=== PATIENT | female | born 1970 | race Caucasian/White ===

== ENCOUNTER 2016-10-05 08:38 | Observation (INO) | payer OTHER ==
[2016-09-25 11:10] VITALS: BMI 22.0
[2016-10-05] VITALS (13 sets, daily range): BP systolic 109–139; BP diastolic 73–89; PULSE 73–112; TEMP 36.5–36.8; O2SAT 96–100; Ht 160 cm; Wt 58.6 kg
[~2016-10-05] VITALS: Ht 160 cm; Wt 58.6 kg
--- NOTE | 2016-10-05 07:16 | HISTORY & PHYSICAL EXAMINATION ---
DATE OF ADMISSION: 10/05/2016 This is at [facility]. She is being preoped for an anterior cervical discectomy and fusion; C3, C4, C5, C6 with iliac crest bone graft, possible hardware removal. HISTORY OF PRESENT ILLNESS: Maria A is a delightful patient. She is 46. She is significantly compromised; neck pain, arm pain, weakness as well, trapezius pain and failure of conservative management. She has a significant problem at C4-C5, she has a smaller disc at C3-C4 of the cervical spine. We will address these both tomorrow at surgical intervention. She has failed conservative medication. PAST MEDICAL HISTORY: Positive for acid reflux. No kidney stones or renal issue, no liver pathology. Denies cardiac disease, carcinoma, COPD or diabetes. SOCIAL HISTORY: Negative for cigarettes and drug use. ALLERGIES: Negative. MEDICATIONS: Include tramadol, Advil and amitriptyline. REVIEW OF SYSTEMS: Denies any fevers, sweats, chills, malaise. Denies ear, nose and throat complaints. Denies chest pain, palpitations. Denies shortness of breath, asthma. Does have some acid reflux and GI disturbance. No nausea, vomiting. Extremities are intact, but she has pain and upper extremity weakness and sensory deficit as well. OBJECTIVE: GENERAL: She is alert, oriented. She is 5 feet 3inches, 129 pounds, at 46 years of age. VITAL SIGNS: Blood pressure 130/80, pulse of 80 and respiratory rate 16. CARDIAC: Normal S1, S2, No S3. LUNGS: Clear. SKIN: No skin rashes or lesions. NEUROLOGIC: She has pain on palpation of the trapezius muscle. She has difficulty with rotating her head left to right. She has Spurling's maneuver and Lhermitte's sign. She has no vascular issues. MRI demonstrates disc issues C4-C5 and C3-C4 cervical spine. IMPRESSION: Cervical spine disc protrusions, prior surgery. DISPOSITION: Includes; tomorrow surgery which is a anterior cervical discectomy and fusion C3-C4, C4-C5, iliac crest bone graft, possible hardware removal.
[~2016-10-05 08:38] MED LIST: AMT50 PO; CALC500C3 PO; CEFAZOLIN 2000 MG/60 ML D5W 60 ML IV SCH; DEXAMETHASONE SOD INJ 4 MG/ML VIAL ONE; ESTR2TAB PO; FENTANYL CITRATE INJ 50 MCG/1 ML 2 ML VIAL ONE; GLYCOPYRROLATE INJ 0.2 MG/ML VIAL ONE; IBUP-103 PO; LACTATED RINGER'S 1000ML 1,000 ML IV SCH; LARYING-O-JET KIT (LTA) EXT ONE; LIDOCAINE HCL 2% 2 ML VIAL (20MG/ML) ONE; MIDAZOLAM HCL 1 MG/ML 2ML VIAL ONE; NEOSTIGMINE METHYLSULFATE 5 MG/5 ML SYR ONE; ONDANSETRON INJ 2 MG/ML 2 ML VIAL ONE; PROPOFOL IV EMULSION 10 MG/ML 20 ML VIAL IV ONE; ROCURONIUM BROMIDE 10 MG/ML 5 ML VIAL ONE; TRAM-10 PO
[2016-10-05 09:35] LABS: BUN/CREATININE RATIO 14.2 (10-20); CALCIUM 8.7 mg/dl (8.5-10.1); CREATININE 0.99 mg/dl (0.60-1.20); POTASSIUM 3.6 mmol/L (3.5-5.1)
[2016-10-05] MEDS ORDERED: ONDANSETRON INJ 2 MG/ML 2 ML VIAL IV PRN ×2 (09:45→13:15)
[2016-10-05] MEDS ORDERED: EpHEDrine SULFATE INJ 50 MG/ML AMP IV PRN (09:45)
[2016-10-05] MEDS ORDERED: PHENYLEPHRINE 100MCG/ML 5ML SYR IV PRN (09:45)
[2016-10-05] MEDS ORDERED: ATROPINE SULFATE 0.1 MG/ML 5ML SYR IV PRN (09:45)
[2016-10-05] MEDS ORDERED: GELATIN SPONGE SZ 100 ONE (09:59)
[2016-10-05] MEDS ORDERED: THROMBIN FOR SOLN 20000 UNIT KIT ONE (09:59)
[2016-10-05] MEDS ORDERED: BACITRACIN 50000 UNIT VIAL ONE (10:00)
[2016-10-05] MEDS ORDERED: BUPIVACAINE/EPINEPHRINE 0.5% MPF 1:200,000 30 ML VIAL ONE (10:00)
--- NOTE | 2016-10-05 10:26 | History & Physical Bridge Note ---
H&P Re-Evaluation Bridge Note: I have examined the patient, reviewed the History & Physical and in the interval since the performance of the History & Physical I have noted the following changes of clinical significance: No changes noted
[2016-10-05] MEDS ORDERED: FENTANYL CITRATE INJ 50 MCG/1 ML 2 ML VIAL ONE (11:18)
--- NOTE | 2016-10-05 12:47 | DIAGNOSTIC IMAGING REPORT ---
INTRAOPERATIVE FLUOROSCOPIC IMAGES OF THE CERVICAL SPINE CLINICAL HISTORY: C3-C5 ACDF COMPARISON STUDY: Cervical spine radiographs September 23, 2016 Fluoroscopy time: 4 seconds FINDINGS: 2 fluoroscopic images demonstrate an interval anterior discectomy and fusion at C3-C4 and C4-C5. A previous C5-C7 anterior discectomy and fusion is noted. IMPRESSION: Findings consistent with an interval C3-C5 anterior discectomy and fusion Electronically signed by: Jude Morris M.D. 10/05/2016 12:45 PM Dictated Date/Time: 10/05/2016 12:44 PM
[2016-10-05] MEDS ORDERED: HYDROmorphone INJ 1 MG/ML SYR ONE (13:03)
[2016-10-05] MEDS: HYDROmorphone INJ 2 MG/ML SYR/VIAL IV PRN ×6 (13:07→13:35)
--- NOTE | 2016-10-05 13:07 | [facility] Post Operative Brief Note ---
Immediate Operative Summary Operative Date Oct 05, 2016. Pre-Operative Diagnosis Cervical Disc Disorder Post-Operative Diagnosis Cervical Disc Disorder Procedure(s) Performed C3-C4,C4-C5 Anterior Cervical Discectomy and Fusion, with Iliac Crest Bone Graft Surgeon Dr. Prieto Process Worker Surgeon(s) MCKENZIE Stephens Estimated Blood Loss 30ml Findings disc herniation c3-4, c4-5 Specimens none per surgeon Complication(s) None Disposition Recovery Room / PACU
[2016-10-05] MEDS ORDERED: HYDROCODONE/ACETAMOPHEN 5/325MG TAB PO PRN (13:15)
[2016-10-05] MEDS ORDERED: HYDROmorphone INJ 0.5 MG/0.5 ML SYR IV PRN (13:15)
[2016-10-05] MEDS ORDERED: IBUPROFEN 200 MG TAB PO PRN (13:15)
[2016-10-05] MEDS ORDERED: NALOXONE HCL 0.4 MG/1 ML VIAL/CARP IV PRN (13:15)
[2016-10-05] MEDS ORDERED: DEXAMETHASONE INJ 8 MG in SYRINGE 0 ML IV PRN (13:15)
[2016-10-05] MEDS ORDERED: ACETAMINOPHEN IV 100 ML IV PRN (13:15)
[2016-10-05] MEDS ORDERED: LORAZEPAM INJ 0.5 MG in SYRINGE 0.75 ML IV PRN (13:15)
[2016-10-05] MEDS ORDERED: MAGNESIUM HYDROXIDE SUSP 30 ML UDC PO PRN (13:15)
[2016-10-05] MEDS ORDERED: RACEPINEPHRINE 2.25% NEBU SOLN 0.5 ML VIAL INH PRN (13:15)
[2016-10-05] MEDS ORDERED: KETOROLAC TROMETHAMINE 30 MG/ML VIAL ONE (13:37)
[2016-10-05] MEDS ORDERED: IV FLUIDS COMPLETED PRN (14:00)
[2016-10-05] MEDS ORDERED: DIAZEPAM INJ 5 MG/ML 2 ML CARP IV ONE (14:00)
[2016-10-05] MEDS ORDERED: KETOROLAC TROMETHAMINE 30 MG/ML VIAL IV SCH (15:05)
[2016-10-05] MEDS: NSS 1000ML IV SCH ×2 (15:28→15:35)
[2016-10-05] MEDS: SODIUM CHLORIDE 0.9% 1000ML 1,000 ML IV SCH (15:29)
--- NOTE | 2016-10-05 15:37 | Anesthesiology Progress Note ---
Anesthesia Post Op Note Date & Time Oct 05, 2016 at 15:38 Vital Signs Pain Intensity: 6.0 Vital Signs Past 12 Hours Date Time Temp Pulse Resp B/P Pulse Ox O2 Delivery O2 Flow Rate FiO2 10/05/16 14:58 36.6 79 16 131/84 100 Nasal Cannula 4.0 Humidified Oxygen 10/05/16 14:30 36.5 79 16 129/81 100 Nasal Cannula 3.0 Humidified Oxygen 10/05/16 14:30 100 Nasal Cannula 3.0 10/05/16 14:20 87 22 100 10/05/16 14:20 83 22 10/05/16 14:18 140/78 10/05/16 14:15 77 23 10/05/16 14:15 79 23 100 10/05/16 14:13 135/85 10/05/16 14:10 73 16 100 10/05/16 14:10 72 16 10/05/16 14:09 80 18 100 10/05/16 14:09 80 18 10/05/16 14:08 134/75 10/05/16 14:04 75 15 10/05/16 14:04 77 15 100 10/05/16 14:03 138/83 10/05/16 13:59 70 22 10/05/16 13:59 67 22 100 10/05/16 13:58 141/83 10/05/16 13:54 87 22 100 10/05/16 13:54 87 22 10/05/16 13:53 143/92 10/05/16 13:49 89 22 100 10/05/16 13:49 91 22 10/05/16 13:48 148/101 10/05/16 13:44 89 22 10/05/16 13:44 87 22 100 10/05/16 13:43 146/110 10/05/16 13:39 89 19 10/05/16 13:39 89 19 100 10/05/16 13:38 149/94 10/05/16 13:34 97 18 10/05/16 13:34 96 18 100 10/05/16 13:33 132/95 10/05/16 13:29 87 23 10/05/16 13:29 87 23 100 10/05/16 13:28 135/87 10/05/16 13:27 88 20 100 10/05/16 13:27 87 20 10/05/16 13:23 117/82 10/05/16 13:22 84 10/05/16 13:22 84 20 100 10/05/16 13:20 Nasal Cannula 3 10/05/16 13:18 127/89 10/05/16 13:17 89 16 10/05/16 13:17 88 16 100 10/05/16 13:13 118/84 10/05/16 13:12 83 22 100 10/05/16 13:12 84 22 10/05/16 13:08 119/63 10/05/16 13:07 74 22 10/05/16 13:07 72 22 100 10/05/16 13:03 119/65 10/05/16 13:02 85 20 100 10/05/16 13:02 84 20 10/05/16 13:01 115/67 10/05/16 12:57 36.0 87 20 115/67 100 Mask 10 10/05/16 09:01 36.6 92 16 109/74 Room Air Notes Mental Status: alert / awake / arousable, participated in evaluation Pt Amnestic to Procedure: Yes Nausea / Vomiting: adequately controlled Pain: adequately controlled Airway Patency, RR, SpO2: stable & adequate BP & HR: stable & adequate Hydration State: stable & adequate Anesthetic Complications: no major complications apparent
[2016-10-05] MEDS: KETOROLAC TROMETHAMINE 30 MG/ML VIAL IV. SCH ×2 (17:40→23:22)
[2016-10-05] MEDS: CEFAZOLIN IV 1,000 MG in DEXTROSE 5% 50ML 50 ML IV SCH (17:42)
[2016-10-05] MEDS: DEXAMETHASONE INJ 6 MG in SYRINGE 0 ML IV SCH (18:07)
[2016-10-05] MEDS ORDERED: ESTRADIOL 1 MG TAB PO SCH (21:00)
[2016-10-05] MEDS ORDERED: AMITRIPTYLINE HCL 25 MG TAB PO SCH (21:00)
[2016-10-05] MEDS: DOCUSATE SODIUM 100 MG CAP PO SCH (21:01)
[2016-10-05] MEDS: HYDROmorphone INJ 1 MG/ML SYR IV PRN (21:28)
[2016-10-06] VITALS (13 sets, daily range): BP systolic 104–124; BP diastolic 68–82; PULSE 91–110; TEMP 36.6–36.8; O2SAT 94–99
[2016-10-06] MEDS: DEXAMETHASONE INJ 6 MG in SYRINGE 0 ML IV SCH ×2 (01:34→08:57)
[2016-10-06] MEDS: CEFAZOLIN IV 1,000 MG in DEXTROSE 5% 50ML 50 ML IV SCH ×2 (01:34→08:58)
[2016-10-06] MEDS: SODIUM CHLORIDE 0.9% 1000ML 1,000 ML IV SCH (03:32)
[2016-10-06] MEDS: HYDROmorphone INJ 1 MG/ML SYR IV PRN ×2 (05:17→10:52)
[2016-10-06] MEDS: KETOROLAC TROMETHAMINE 30 MG/ML VIAL IV. SCH ×2 (05:36→10:46)
--- NOTE | 2016-10-06 07:05 | OPERATIVE REPORT ---
DATE OF OPERATION: 10/05/2016 PREOPERATIVE DIAGNOSIS: Cervical spondylosis and discogenic issues, cervical spine with disc herniation C3-4 and 4-5 cervical spine. POSTOPERATIVE DIAGNOSIS: Same. PROCEDURE: 2-level ACDF of the cervical spine with left iliac crest bone autograft. SURGEON: Dr. Prieto. FORM DESIGNER: Mario Salgado PA-C COMPLICATIONS: Zero. BLOOD LOSS: 30 mL. DESCRIPTION OF PROCEDURE: The patient was taken to the operating room, a general intubated anesthetic provided to the patient, kept supine, prepped and draped sterile both the iliac crest and cervical spine. We made a transverse skin incision roughly above the L4 vertebrae, dissecting the soft tissue. We marked off the disc interval at C4-C5 and 5-6 with a spinal needle. The dissection was fairly straightforward with good positioning and good lighting. We did a formal discectomy at 4-5. Back and through the posterior longitudinal ligament, disc material was removed in toto. We also did good foraminotomies. We did good discectomies out in the neural foramen, taking out all material that was foreseeable. We did not get more than a millimeter past the uncovertebral joint. We repeated the procedure at the 3-4 interspace as well, protecting all neurovascular structures, not hurting the soft tissue structures and vacating disc intervals. We irrigated at that time. We then went back to the iliac crest, made a skin incision, fascial incision and harvested some structural autograft to be used as bone fillers in the discectomy sites. We then filled the [employer] from the [employer] with a structural autograft, packed this into the interval, packed this into the disc spaces and secured these with cortical cancellous screws. A cross table lateral radiograph demonstrated good positioning of the implant. We then irrigated thoroughly, closed in layers with 0 Vicryl, 2-0 and 3-0 nylon. Sterile dressings applied, closed over drains. The patient returned to PACU improved, stable with no apparent intraoperative complications. Sponge and needle count correct at the close of the procedure. IMPLANTS USED: By the [employer]. I attest to the content of the Intraoperative Record and any orders documented therein. Any exceptions are noted below. NITIN
[2016-10-06] MEDS ORDERED: OXYC-59 PO (07:33)
[2016-10-06] MEDS: DOCUSATE SODIUM 100 MG CAP PO SCH (08:56)
--- NOTE | 2016-10-07 00:04 | DISCHARGE SUMMARY ---
SUBJECTIVE: Minimal complaints of pain. Alert and oriented. Taking p.o. No chest pain or shortness of breath. OBJECTIVE: 36.6 temperature. Vital signs stable. ASSESSMENT: Status post cervical spine surgery. DISPOSITION: She is to go home today. Instructions, precautions given. Follow up in 10 days. Collar provided. Medications provided, and we will see her back in the office in 10 days. She is to call if problems arise.
[2016-10-07] MEDS ORDERED: BISACODYL 10 MG SUPP PR PRN (06:00)
[2016-10-07] MEDS ORDERED: BISACODYL 5 MG TABEC PO PRN (06:00)
[2016-10-07] MEDS ORDERED: POLYETHYLENE (MIRALAX) 17 GM PACK PO SCH (09:00)
== END 2016-10-06 11:55 | disposition home or self-care (01) ==
LOC: ENRESERVTM → ENRESERVDT → C.ACU 08:38 → C.3E 09:00
PROVIDERS: ADMIT Orthopaedic Surgery Orthopaedic Surgery of the Spine; ATTEND Orthopaedic Surgery Orthopaedic Surgery of the Spine
DX: M50.21 Other cervical disc displacement, high cervical region (principal); M50.221 Other cervical disc displacement at C4-C5 level; M47.892 Other spondylosis, cervical region; Z79.899 Other long term (current) drug therapy

== ENCOUNTER 2017-04-30 10:11 | Emergency (ER) | payer OTHER ==
[~2017-04-30] VITALS: Ht 160 cm; Wt 58.7 kg
[~2017-04-30 10:11] MED LIST changes: -CEFAZOLIN 2000 MG/60 ML D5W 60 ML IV SCH; -DEXAMETHASONE SOD INJ 4 MG/ML VIAL ONE; -FENTANYL CITRATE INJ 50 MCG/1 ML 2 ML VIAL ONE; -GLYCOPYRROLATE INJ 0.2 MG/ML VIAL ONE; -LACTATED RINGER'S 1000ML 1,000 ML IV SCH; -LARYING-O-JET KIT (LTA) EXT ONE; -LIDOCAINE HCL 2% 2 ML VIAL (20MG/ML) ONE; -MIDAZOLAM HCL 1 MG/ML 2ML VIAL ONE; -NEOSTIGMINE METHYLSULFATE 5 MG/5 ML SYR ONE; -ONDANSETRON INJ 2 MG/ML 2 ML VIAL ONE; -PROPOFOL IV EMULSION 10 MG/ML 20 ML VIAL IV ONE; -ROCURONIUM BROMIDE 10 MG/ML 5 ML VIAL ONE
[2017-04-30 10:18] VITALS: TEMP 36.9; Ht 160 cm; Wt 58.7 kg
[2017-04-30] MEDS ORDERED: KETOROLAC TROMETHAMINE 60 MG/2 ML VIAL IM STA (11:31)
[2017-04-30] MEDS ORDERED: ONDANSETRON 4MG OD TAB PO STA (11:31)
[2017-04-30] MEDS ORDERED: HYDROmorphone INJ 1 MG/ML SYR IM STA (11:31)
[2017-04-30] MEDS ORDERED: DIAZEPAM 5MG TAB PO ONE (11:45)
[2017-04-30] MEDS ORDERED: OXYC-57 PO ×2 (12:44→13:15)
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
[2017-04-30 13:15] VITALS: BP 115/74; PULSE 68; O2SAT 98
== END 2017-04-30 13:15 | disposition home or self-care (01) ==
LOC: C.EDB 10:12 → C.EDD 13:15
DX: M54.5 Low back pain (principal); K21.9 Gastro-esophageal reflux disease without esophagitis